=== PATIENT | female | born 1950 ===

== ENCOUNTER 2019-05-20 14:18 | Observation (INO) | payer MEDICARE, OTHER ==
[2019-05-20] MEDS ORDERED: Clindamycin/D5W 900 mg/50 ml Premix Bag ONE (16:28)
[2019-05-20 16:53] LABS: #Basophils 0.1 thou/uL (0.0-0.2); #Eosinphils 0.4 thou/uL (0.0-0.7); #Lymphocytes 2.4 thou/uL (1.20-3.40); #Monocytes 0.6 thou/uL (0.11-0.59); #Neutrophils 4.7 thou/uL (1.40-6.50); %Basophils 1.2 % (0.0-1.0); %Eosinophils 5.3 % (0.0-10.0); %Lymphocytes 29.5 % (21.0-51.0); %Monocytes 7.2 % (0.0-10.0); %Neutrophils 56.8 % (42.0-75.0); Hemoglobin 16.6 g/dL (12.0-16.0); Mean Corpuscular HGB CONC 32.3 g/dL (32.0-36.0); Mean Corpuscular Hemoglobin 29.9 pg (27.0-31.0); Mean Corpuscular Volume 92.8 fL (78.0-98.0); Platelet Count 243 thou/uL (130-400); RBC Distribution Width 13.1 % (11.5-14.5); Red Blood Cell (RBC) Count 5.53 mill/uL (4.20-5.40); White Blood Cell (WBC) Count 8.2 thou/uL (4.8-10.8)
[2019-05-20 17:11] LABS: ALT (SGPT) 20 U/L (8-55); AST (SGOT) 19 U/L (5-34); Albumin 3.8 g/dL (3.4-4.8); Alkaline Phosphatase 132 U/L (40-110); Anion Gap 10 mmol/L (10-20); BUN (Urea Nitrogen) 9 mg/dL (9.8-20.1); Bilirubin, Total 0.5 mg/dL (0.2-1.2); Calc. Creatinine Clearance 0 mL/min (70-130); Calcium 10.9 mg/dL (7.8-10.44); Carbon Dioxide 33 mmol/L (23-31); Chloride 97 mmol/L (98-107); Estimated GFR-MDRD 67; Globulin 3.3 g/dL (2.4-3.5); Glucose 120 mg/dL (80-115); Protein, Total 7.1 g/dL (6.0-8.3); Sodium 137 mmol/L (136-145)
[2019-05-20] MEDS ORDERED: cefTRIAXone\\ROCEPHIN 1 GM VIAL ONE (18:35)
[2019-05-20 19:07] LABS: INR-International Normal Ratio 2.7; PTT 44.4 SEC (22.9-36.1); Prothrombin Time 28.1 SEC (12.0-14.7)
--- NOTE | 2019-05-20 21:16 | PDOC.FPRHP ---
- History of Present Illness Chief Complaint: LUE Cellulitis History of Present Illness: Pt is a 68 yo female who presented to the emergency department with cellulitis, bullae on her L forearm originating at 0300 this morning. She states she woke up and felt pain before realizing she had erythematous skin. She endorsed burning sensation as well. She has multiple open lesion on her arms, legs, and abdomens as well as dry skin. She consistently picks,itches her body. She has an open abrasion an inch or two below her cellulitis. She admits to being scratched by her dogs. She has never had a lesion like this before. She is living in her camper on sister's lawn for the last week. They were estranged as kids and finally met up. She states in this time she has been showering once every three days. - History PMHx: PSHx: FHx: Social: - Vital signs BP: [] HR: [] RR: [] Tmax: [] Pox: []% on [] Wt: [] FMR H&P: Results - Labs Result Diagrams: 05/20/19 16:35 05/20/19 16:35 Lab results: WBC 8.2 thou/uL (4.8-10.8) 05/20/19 16:35 Hgb 16.6 g/dL (12.0-16.0) H 05/20/19 16:35 Hct 51.3 % (36.0-47.0) H 05/20/19 16:35 MCV 92.8 fL (78.0-98.0) 05/20/19 16:35 Plt Count 243 thou/uL (130-400) 05/20/19 16:35 Neutrophils % 56.8 % (42.0-75.0) 05/20/19 16:35 ESR Westergren 26 mm/hr (Less than 30) 05/20/19 16:35 Sodium 137 mmol/L (136-145) 05/20/19 16:35 Potassium 3.0 mmol/L (3.5-5.1) L 05/20/19 16:35 Chloride 97 mmol/L (98-107) L 05/20/19 16:35 Carbon Dioxide 33 mmol/L (23-31) H 05/20/19 16:35 BUN 9 mg/dL (9.8-20.1) L 05/20/19 16:35 Creatinine 0.85 mg/dL (0.6-1.1) 05/20/19 16:35 Glucose 120 mg/dL (80-115) H 05/20/19 16:35 Lactic Acid 1.6 mmol/L (0.5-2.2) 05/20/19 16:35 Calcium 10.9 mg/dL (7.8-10.44) H 05/20/19 16:35 Total Bilirubin 0.5 mg/dL (0.2-1.2) 05/20/19 16:35 AST 19 U/L (5-34) 05/20/19 16:35 ALT 20 U/L (8-55) 05/20/19 16:35 Alkaline Phosphatase 132 U/L (40-110) H 05/20/19 16:35 C-Reactive Protein 1.02 mg/dL (= or < 0.5) H 05/20/19 16:35 Serum Total Protein 7.1 g/dL (6.0-8.3) 05/20/19 16:35 Albumin 3.8 g/dL (3.4-4.8) 05/20/19 16:35 FMR H&P: Upper Level - Plan Date/Time: 05/20/192105 I, [], have evaluated this patient and agree with findings/plan as outlined by investigator internal revenue resident. Pertinent changes/additions are listed here.
[2019-05-20 22:03] VITALS: BMI 39.5
--- NOTE | 2019-05-20 22:06 | PDOC.FPRHP ---
- History of Present Illness Chief Complaint: arm pain History of Present Illness: Pt presents with left forearm pain that woke her form sleep starting last night around 3 AM. Since then an area on her ventral left forearm has become erythematous, painful (aching, moderate, does not radiate), and has been weeping fluid. No fevers but she does have chills. No diaphoresis. No chest pain, shortness of breath, nausea, vomiting. No wound to that area. ED Course: Dx with cellulitis and started on vanc/clinda/ceftriaxone. - Allergies/Adverse Reactions Allergies Allergy/AdvReac Type Severity Reaction Status Date / Time codeine Allergy Verified 05/20/19 22:58 Penicillins Allergy Verified 05/20/19 22:04 - Home Medications Medication Instructions Recorded Confirmed Type Atorvastatin Calcium [Lipitor] 20 mg PO DAILY 05/20/19 05/20/19 History Gabapentin 800 mg PO TID 05/20/19 05/20/19 History Losartan/Hydrochlorothiazide 1 tab PO DAILY 05/20/19 05/20/19 History [Losartan-Hctz 100-25 mg Tab] Venlafaxine HCl [Venlafaxine HCl 150 mg PO DAILY 05/20/19 05/20/19 History ER] Warfarin Sodium 5 mg PO DAILY 05/20/19 05/20/19 History metFORMIN [Glucophage] 500 mg PO QAM-WM 05/20/19 05/20/19 History traMADol HCl [Tramadol HCl] 100 mg PO QID 05/20/19 05/21/19 History Sulfamethoxazole/Trimethoprim 1 tab PO BID #10 tab 05/21/19 Rx [Bactrim DS] - History PMHx: DVT x 2, mood disorder, Borderline DM, COPD, HTN PSHx: Hysterectomy, Appendectomy, Back surgery x 2, Tonsillectomy FHx: Adopted Social: Smokes 1ppd, denies alcohol, drugs - Review of Systems General: reports: other (see hpi) ENT: denies: nasal congestion, rhinorrhea Respiratory: denies: cough, congestion, shortness of breath Cardiovascular: reports: palpitation (intermittent, none recently). denies: chest pain, orthopnea Gastrointestinal: denies: nausea, vomiting, diarrhea Genitourinary: denies: dysuria, polyuria Skin: reports: rashes (see HPI) Musculoskeletal: denies: tenderness, arthritis/arthralgias Neurological: denies: numbness, seizure, weakness - Vital signs BP: 106/44 HR: 72 RR: 18 Tmax: 97.9 Pox: 98% on RA - Physical Exam Constitutional: NAD, awake, alert and oriented, well developed HEENT: normocephalic and atraumatic, EOMI Neck: supple, FROM Heart: RRR, no murmurs/rubs/gallops Lungs: no respiratory distress, other (crackles left lung, no wheezes) Abdomen: soft, non-tender, no masses/distention Musculoskeletal: normal structure, normal tone, ROM grossly normal Neurological: no focal deficit, CN II-XII intact Skin: other (area of erythema over volar left forearm with flaccid areas of blisters) Heme/Lymphatic: no unusual bruising or bleeding, no purpura, no petechia Psychiatric: normal mood and affect, good judgment and insight, intact recent and remote memory FMR H&P: Results - Labs Result Diagrams: 05/21/19 05:37 05/21/19 05:37 Lab results: WBC 8.2 thou/uL (4.8-10.8) 05/20/19 16:35 Hgb 16.6 g/dL (12.0-16.0) H 05/20/19 16:35 Hct 51.3 % (36.0-47.0) H 05/20/19 16:35 MCV 92.8 fL (78.0-98.0) 05/20/19 16:35 Plt Count 243 thou/uL (130-400) 05/20/19 16:35 Neutrophils % 56.8 % (42.0-75.0) 05/20/19 16:35 ESR Westergren 26 mm/hr (Less than 30) 05/20/19 16:35 Sodium 137 mmol/L (136-145) 05/20/19 16:35 Potassium 3.0 mmol/L (3.5-5.1) L 05/20/19 16:35 Chloride 97 mmol/L (98-107) L 05/20/19 16:35 Carbon Dioxide 33 mmol/L (23-31) H 05/20/19 16:35 BUN 9 mg/dL (9.8-20.1) L 05/20/19 16:35 Creatinine 0.85 mg/dL (0.6-1.1) 05/20/19 16:35 Glucose 120 mg/dL (80-115) H 05/20/19 16:35 Lactic Acid 1.6 mmol/L (0.5-2.2) 05/20/19 16:35 Calcium 10.9 mg/dL (7.8-10.44) H 05/20/19 16:35 Total Bilirubin 0.5 mg/dL (0.2-1.2) 05/20/19 16:35 AST 19 U/L (5-34) 05/20/19 16:35 ALT 20 U/L (8-55) 05/20/19 16:35 Alkaline Phosphatase 132 U/L (40-110) H 05/20/19 16:35 C-Reactive Protein 1.02 mg/dL (= or < 0.5) H 05/20/19 16:35 Serum Total Protein 7.1 g/dL (6.0-8.3) 05/20/19 16:35 Albumin 3.8 g/dL (3.4-4.8) 05/20/19 16:35 FMR H&P: A/P - Problem List (1) Cellulitis of left arm Status: Acute Code(s): L03.114 - CELLULITIS OF LEFT UPPER LIMB (2) Metabolic alkalosis Status: Acute Code(s): E87.3 - ALKALOSIS (3) Morbid obesity Status: Acute Code(s): E66.01 - MORBID (SEVERE) OBESITY DUE TO EXCESS CALORIES (4) Hypercalcemia Status: Acute Code(s): E83.52 - HYPERCALCEMIA (5) Elevated alkaline phosphatase level Status: Acute Code(s): R74.8 - ABNORMAL LEVELS OF OTHER SERUM ENZYMES (6) Elevated C-reactive protein (CRP) Status: Acute Code(s): R79.82 - ELEVATED C-REACTIVE PROTEIN (CRP) (7) Hypokalemia Status: Acute Code(s): E87.6 - HYPOKALEMIA (8) prison current use of anticoagulant Status: Acute Code(s): Z79.01 - GIN FEEDER (CURRENT) USE OF ANTICOAGULANTS (9) History of deep vein thrombosis (DVT) of lower extremity Status: Acute Code(s): Z86.718 - PERSONAL HISTORY OF OTHER VENOUS THROMBOSIS AND EMBOLISM - Plan Cellulitis with elevated CRP and no signs of sepsis -continue clinda overnight and transition to PO in the AM -likely d/c tomorrow Hypokalemia -replete and recheck in AM H/o PE on anticoag -continue warfarin Elevated Ca -likely 2/2 hemoconcentration, finish IVF and recheck Elevated alk phos -bone vs liver -likely defer to outpatient Morbid obesity -diet/exercise discussion DVT ppx with warfarin GI ppx with diet FMR H&P: Upper Level - Plan Date/Time: 05/20/19 [id number] I, [], have evaluated this patient and agree with findings/plan as outlined by product marketing intern resident. Pertinent changes/additions are listed here. Addendum - Attending - Attending Attestation Date/Time: 05/21/19 [id number] I personally evaluated the patient and discussed the management with the team. I agree with the History, Examination, Assessment and Plan documented above with any addition or exceptions noted below. Switch to PO antibiotics, hopeful d/c in the AM.
[2019-05-20] MEDS ORDERED: Albuterol Sulfate 2.5 mg/3 ml Neb NEB PRN (22:43)
[2019-05-20] MEDS: traMADol HCl 50 MG TAB PO PRN (23:06)
[2019-05-20] MEDS ORDERED: Acetaminophen 325 MG TAB PO PRN (23:10)
[2019-05-20] MEDS ORDERED: Lactated Ringer's 1,000 ML IV SCH (23:30)
[2019-05-21] MEDS ORDERED: Clindamycin/D5W 900 MG in Premix Bag 1 BAG IVPB SCH (00:30)
[2019-05-21 05:54] LABS: #Basophils 0.1 thou/uL (0.0-0.2); #Eosinphils 0.4 thou/uL (0.0-0.7); #Lymphocytes 2.2 thou/uL (1.20-3.40); #Monocytes 0.6 thou/uL (0.11-0.59); %Basophils 1.2 % (0.0-1.0); %Lymphocytes 26.6 % (21.0-51.0); %Monocytes 7.5 % (0.0-10.0); %Neutrophils 59.7 % (42.0-75.0); Hemoglobin 14.3 g/dL (12.0-16.0); Mean Corpuscular HGB CONC 33.6 g/dL (32.0-36.0); Mean Corpuscular Hemoglobin 31.3 pg (27.0-31.0); Mean Corpuscular Volume 93.2 fL (78.0-98.0); Mean Platelet Volume 7.9 fL (7.4-10.4); Platelet Count 196 thou/uL (130-400); Red Blood Cell (RBC) Count 4.58 mill/uL (4.20-5.40); White Blood Cell (WBC) Count 8.4 thou/uL (4.8-10.8)
[2019-05-21 06:00] LABS: INR-International Normal Ratio 3.4; Prothrombin Time 33.9 SEC (12.0-14.7)
[2019-05-21] MEDS ORDERED: Potassium Chloride 20 MEQ TAB PO SCH (06:00)
[2019-05-21 06:16] LABS: Anion Gap 7 mmol/L (10-20); BUN (Urea Nitrogen) 10 mg/dL (9.8-20.1); Calc. Creatinine Clearance 86 mL/min (70-130); Carbon Dioxide 36 mmol/L (23-31); Chloride 101 mmol/L (98-107); Estimated GFR-MDRD 61; Glucose 122 mg/dL (80-115); Sodium 141 mmol/L (136-145)
--- NOTE | 2019-05-21 07:12 | PDOC.FM ---
- Subjective Subjective: Doing well this morning, no acute events overnight. States erythema and tenderness of left arm has improved. No fever/chills, SOB, n/v, CP. Eager for discharge. - Objective MAR Reviewed: Yes Vital Signs & Weight: Vital Signs (12 hours) Temp Pulse Resp BP Pulse Ox 05/21/19 05:06 97.9 F 73 20 139/72 94 L 05/20/19 21:47 98.5 F 64 18 136/68 93 L Weight Weight 91.852 kg I&O: 05/20/19 05/21/19 05/22/19 06:59 06:59 06:59 Intake Total 821 Output Total 400 Balance 421 Result Diagrams: 05/21/19 05:37 05/21/19 05:37 EKG Reviewed by me: Yes (Tele: No acute events) Phys Exam - Physical Examination Constitutional: NAD (resting comfortably) HEENT: moist MMs Neck: no nodes, supple Respiratory: no wheezing, no rales, no rhonchi, clear to auscultation bilateral Cardiovascular: RRR, no significant murmur, no rub Gastrointestinal: soft, non-tender, no distention, positive bowel sounds Musculoskeletal: no edema Neurological: non-focal, moves all 4 limbs Psychiatric: normal affect, A&O x 3 Dx/Plan (1) Cellulitis of left arm Code(s): L03.114 - CELLULITIS OF LEFT UPPER LIMB Status: Acute - Plan Plan: 68yo F with h/o DVT on anticoag, COPD, HTN presents with L arm cellulitis #Cellulitis of L UE - VSS, no s/s of sepsis - Initially given Clinda, transitioned to PO Bactrim - Clinically improved, erythema decreased from marked margins, WBC WNL - Anticipate discharge today with PO antibiotic course #Hypokalemia - replace and monitor, will check Mg # H/o PE on anticoag -continue warfarin, will need close monitoring while on Bactrim #Mild Dehydration - hemoconcentrated on initial lab work, responded to IVF #Elevated alk phos -bone vs liver -likely defer to outpatient #Morbid obesity -diet/exercise discussion Code: Full PCP: CC - from [place] VTE: Warfarin Diet: CC IVF: SL Addendum - Attending - Attending Attestation Date/Time: 05/21/19 1837 I personally evaluated the patient and discussed the management with the team. I agree with the History, Examination, Assessment and Plan documented above with any addition or exceptions noted below.
[2019-05-21] MEDS ORDERED: metFORMIN 500 MG TAB PO SCH (08:00)
[2019-05-21 08:10] VITALS: BP 166/85; TEMP 98.1
[2019-05-21] MEDS: traMADol HCl 50 MG TAB PO PRN (08:38)
[2019-05-21] MEDS ORDERED: Sulfameth/Trimethoprim DS 800-160mg TAB PO SCH (09:00)
[2019-05-21] MEDS ORDERED: Gabapentin 400 MG CAP PO SCH (09:00)
[2019-05-21] MEDS ORDERED: Venlafaxine HCl XR 75 MG CAP PO SCH (09:00)
[2019-05-21] MEDS ORDERED: Atorvastatin Calcium 20 MG TAB PO SCH (09:00)
[2019-05-21] MEDS ORDERED: Losartan/Hydrochlorothiazide 100 mg/25 mg Tablet PO SCH (09:00)
--- NOTE | 2019-05-21 10:56 | RAD ---
PA AND LATERAL CHEST: HISTORY: COPD. FINDINGS: Heart size is enlarged. Mediastinal structures are unremarkable. There are increased interstitial l stephany markings. I favor that this is most likely chronic in nature. Some element of edema could be pr esent. No previous films available for comparison. IMPRESSION: Cardiomegaly with some increased interstitial lung markings probably chronic in nature but some eleme nt of edema could possibly be present. Followup chest film would be suggested as clinically indicate d. POS: [facility]
[2019-05-21] MEDS ORDERED: Warfarin Sodium 5 MG TAB PO SCH ×2 (17:00)
--- NOTE | 2019-05-22 03:37 | DIS ---
DATE OF ADMISSION: 05/20/2019 DATE OF DISCHARGE: 05/21/2019 RESIDENT: Lance Oropeza MD ADMITTING ATTENDING: Dr. Francisco Peacock. DISCHARGE ATTENDING: Dr. Francisco Peacock. CONSULTS: None. PROCEDURES: Chest x-ray on 05/21/2019 demonstrating chronic COPD changes with hyperinflation and cardiomegaly. No acute cardiopulmonary process. PRIMARY DIAGNOSIS: Cellulitis of left upper extremity. SECONDARY DIAGNOSES: 1. Hypokalemia, resolved. 2. Morbid obesity. 3. History of PE on anticoagulation. 4. Hypertension. 5. Chronic obstructive pulmonary disease. DISCHARGE MEDICATIONS: 1. Lipitor 20 mg p.o. daily. 2. Warfarin 5 mg p.o. daily. 3. Gabapentin 800 mg p.o. t.i.d. 4. Tramadol 100 mg p.o. q.i.d. 5. Metformin 500 mg p.o. q.a.m. 6. Effexor 150 mg p.o. daily. 7. Losartan/hydrochlorothiazide 100/25 mg one tablet p.o. daily. 8. Bactrim double strength 1 tab p.o. b.i.d. x5 days. DISCONTINUED MEDICATIONS: None. HISTORY OF PRESENT ILLNESS AND HOSPITAL COURSE: The patient is a 68-year-old female who is visiting here from [place], who presented to the ED for left upper extremity cellulitis. At the time of evaluation in the Emergency Department, she was doing well with mild pain. Her vital signs were stable. White count was within normal limits. She denied any fevers, chills, chest pain, shortness of breath, nausea, vomiting, or diarrhea. She denies any recent trauma to that area. In the ED, she was given vancomycin, clindamycin, and ceftriaxone, admitted for further evaluation and management. On the floor, antibiotics were transitioned to p.o. Bactrim as this is a soft-tissue cellulitis without any outpatient therapy. The patient's labs were trended and remained stable. It was noted the patient had a mild hypokalemia at 3.0 that was replaced and a mild hypercalcemia at 10.9, however, this did correct to 10.0 with IV hydration. The patient was volume contracted at admission. The patient's vitals remained stable and the erythema and edema and tenderness of the left upper extremity decreased over her hospitalization. Regarding the patient's chronic medical condition, her home medications were continued. At the time of discharge, the patient was doing very well. She was tolerating p.o. well. Had no fevers. Vital signs were stable. White count was normal. The cellulitis was much improved from admission, and the patient was told that she will discharge on a course of Bactrim to complete. It was also discussed with the patient that the antibiotic could interfere with her INR and warfarin levels and that she would need to follow up for close INR checks while on antibiotic and immediately after. Return ED precautions were given. The patient voiced agreement and understanding of the discharge plan and was eager to be discharged home. DISCHARGE DISPOSITION: Stable. DISCHARGE INSTRUCTIONS: 1. Location: Home. 2. Diet: As tolerated. 3. Activity: As tolerated. 4. Followup: The patient will follow up with her primary care physician within one week of discharge. Job ID: [id number]
== END 2019-05-21 11:09 | disposition home or self-care (01) ==
LOC: ERS 14:18 → 2SW 21:53
PROVIDERS: ADMIT Emergency Medicine; ATTEND Emergency Medicine
DX: L03.114 Cellulitis of left upper limb (principal); E87.6 Hypokalemia; I10 Essential (primary) hypertension; J44.9 Chronic obstructive pulmonary disease, unspecified; E83.52 Hypercalcemia; R73.03 Prediabetes; F39 Unspecified mood [affective] disorder; F17.210 Nicotine dependence, cigarettes, uncomplicated; E87.3 Alkalosis; R79.82 Elevated C-reactive protein (CRP); R74.8 Abnormal levels of other serum enzymes; F32.9 Major depressive disorder, single episode, unspecified; E86.0 Dehydration; E66.01 Morbid (severe) obesity due to excess calories; Z68.39 Body mass index [BMI] 39.0-39.9, adult; Z86.718 Personal history of other venous thrombosis and embolism; Z79.01 Long term (current) use of anticoagulants; Z79.84 Long term (current) use of oral hypoglycemic drugs; Z79.899 Other long term (current) drug therapy; Z88.0 Allergy status to penicillin; Z88.5 Allergy status to narcotic agent
CPT/HCPCS: 71046; 80048; 80053; 82977; 83605; 85025 ×2; 85610 ×2; 85652; 85730; 86140; 87040; 96365; 96367; 96376; 99284; G0378 ×3; 36415; J0696; J3370; J3490